=== PATIENT | male | born 1975 | race American Indian/Alaskan Native ===

== ENCOUNTER 2016-08-23 18:49 | Inpatient (IN) | payer MEDICARE ==
[2016-08-23 20:30] LABS: Bilirubin,Urine NEG (Negative); Blood,Urine NEG (Negative); Ketones,Urine 20 mg/dL (Negative); Leukocyte Esterase,Urine NEG (Negative); Nitrite,Urine NEG (Negative); Protein,Urine <15 mg/dL mg/dL (Negative); Urobilinogen,Urine < 2.0 mg/dL (<2.0); WBC,Urine < 1.0 /HPF (0.0-6.0)
[2016-08-23 20:43] LABS: Hematocrit 37.5 % (35.5-45.6); Hemoglobin 12.1 gm/dl (11.8-15.2); Mean Corpuscular HGB Conc 32 % (32-34); Mean Corpuscular Hemoglobin 29 pg (28-32); Mean Corpuscular Volume 89 fl (84-94); Platelet Count 280 K/mm3 (140-440); Red Blood Count 4.24 M/mm3 (3.65-5.03); Red Cell Distribution Width 12.1 % (13.2-15.2)
[2016-08-23 20:44] LABS: White Blood Count 28.2 K/mm3 (4.5-11.0)
[2016-08-23 21:07] LABS: Anion Gap 18 mmol/L; BUN/Creatinine Ratio 21.42; Blood Urea Nitrogen 15 mg/dL (9-20); Calcium 8.7 mg/dL (8.4-10.2); Carbon Dioxide 25 mmol/L (22-30); Chloride 88.1 mmol/L (98-107); Glucose 484 mg/dL (75-100); Potassium 4.4 mmol/L (3.6-5.0); Sodium 127 mmol/L (137-145)
[2016-08-23] MEDS ORDERED: TYLENOL ONE (21:42)
[2016-08-23 21:43] LABS: Basophils % (Manual) 0 % (0.0-1.8); Blastocytes % (Manual) 0 %; Eosinophils % (Manual) 0 % (0.0-4.3); Total Cells Counted Percent 6.5
[2016-08-23] MEDS ORDERED: TYLENOL PO ONE (21:44)
[2016-08-23 21:45] LABS: Diff Status Complete; Stomatocytes 1+
[2016-08-24] MEDS ORDERED: TYLENOL ONE (01:44)
[2016-08-24] MEDS ORDERED: NACL 0.9% 1000 ML 1,000 ML IV ONE ×2 (03:01→07:41)
[2016-08-24] MEDS ORDERED: ZOSYN/NS 4.5GM/100ML 4.5 GM/100 ML VIAL IV ONE ×2 (03:09→04:44)
[2016-08-24] MEDS ORDERED: DILAUDID IV ONE (03:09)
[2016-08-24] MEDS ORDERED: VANCOMYCIN/NS 1 GM/250 ML 1 GM/250 ML BAG IV ONE ×2 (03:09→04:40)
[2016-08-24] MEDS ORDERED: ZOFRAN IV ONE (03:09)
[2016-08-24] MEDS ORDERED: NACL 0.9% 500 ML IR ONE (03:12)
[2016-08-24] MEDS ORDERED: XYLOCAINE 1%/ EPI 1:100,000 INFILTRATI ONE ×2 (03:13→07:56)
--- NOTE | 2016-08-24 03:30 | Emergency Department Report ---
HPI - General Chief Complaint: Skin/Abscess/Foreign Body Time Seen by Provider: 08/24/16 02:57 - HPI HPI: Room 1 The patient is a 41-year-old male presenting with a chief complaint of buttocks pain. The patient states he awakened Tuesday morning (3 days ago) and felt a bump above his gluteal cleft. The patient states he squeezed the bump and it began hurting. Patient states gradually over the next few days the area became indurated and began to hurt more. The patient states he noticed a yellow discharge from the area 1.. Patient denies any history of fevers at home. The patient gives his pain a score of 10/10 currently Location: Above gluteal cleft Duration: Days Quality: Pain Severity: 10/10 Modifying factors: [see above] Context: [see above] Mode of transportation: [not driving] ED Past Medical Hx - Past Medical History Previous Medical History?: Yes Hx Diabetes: Yes (noncompliant) - Surgical History Past Surgical History?: Yes Additional Surgical History: Implanted spinal cord stimulator - Family History Family history: no significant - Social History Smoking Status: Never Smoker - Medications Home Medications: Home Medications Medication Instructions Recorded Confirmed Last Taken Type Unobtainable 08/23/16 08/23/16 Unknown History ED Review of Systems ROS: Stated complaint: SPIDER BITE/HOT AND COLD CHILLS Other details as noted in HPI Comment: All other systems reviewed and negative Constitutional: denies: chills, fever Eyes: denies: eye pain, eye discharge, vision change ENT: denies: ear pain, throat pain Respiratory: denies: cough, shortness of breath, wheezing Cardiovascular: denies: chest pain, palpitations Endocrine: no symptoms reported Gastrointestinal: denies: abdominal pain, nausea, diarrhea Genitourinary: denies: urgency, dysuria Musculoskeletal: arthralgia Skin: lesions Neurological: denies: headache, weakness, paresthesias Psychiatric: denies: anxiety, depression Hematological/Lymphatic: denies: easy bleeding, easy bruising Physical Exam - Physical Exam Vital Signs: Vital Signs 08/23/16 08/23/16 08/24/16 19:07 21:46 00:45 Temperature 100.1 F H 100.2 F H Pulse Rate 129 H 120 H Respiratory 20 18 18 Rate Blood Pressure 183/95 Blood Pressure 145/90 [Right] O2 Sat by Pulse 98 99 Oximetry 08/24/16 08/24/16 08/24/16 00:52 01:00 01:03 Temperature 101.5 F H Pulse Rate 118 H Respiratory 12 Rate Blood Pressure 164/104 Blood Pressure 174/95 [Right] O2 Sat by Pulse 98 97 98 Oximetry 08/24/16 08/24/16 08/24/16 01:10 01:13 01:20 Temperature Pulse Rate Respiratory 14 Rate Blood Pressure 164/104 134/87 Blood Pressure [Right] O2 Sat by Pulse 94 98 96 Oximetry 08/24/16 08/24/16 08/24/16 01:36 01:40 01:50 Temperature Pulse Rate 122 H 112 H Respiratory 24 25 H Rate Blood Pressure 134/87 125/89 136/88 Blood Pressure [Right] O2 Sat by Pulse 97 97 95 Oximetry 08/24/16 08/24/16 08/24/16 02:00 02:03 02:10 Temperature 99.5 F Pulse Rate 108 H 111 H 107 H Respiratory 15 21 Rate Blood Pressure 127/83 136/88 Blood Pressure [Right] O2 Sat by Pulse 97 98 Oximetry 08/24/16 08/24/16 08/24/16 02:20 02:30 02:46 Temperature Pulse Rate 107 H 114 H Respiratory 24 18 Rate Blood Pressure 150/85 157/98 157/98 Blood Pressure [Right] O2 Sat by Pulse 96 96 97 Oximetry Physical Exam: GENERAL: The patient is well-developed well-nourished male lying on stretcher appearing to be in mild discomfort HEENT: Normocephalic. Atraumatic. Extraocular motions are intact. Patient has moist mucous membranes. NECK: Supple. Trachea midline CHEST/LUNGS: There is no respiratory distress noted. HEART/CARDIOVASCULAR: Regular. There is tachycardia. ABDOMEN: There is no abdominal distention. SKIN: There is an approximately 12 cm diameter irregularly shaped region of erythema and induration above the gluteal cleft. There is a central head but no active discharge NEURO: The patient is awake, alert, and oriented. The patient is cooperative. The patient has normal speech MUSCULOSKELETAL: There is no evidence of acute injury. ED Course Vital Signs 08/23/16 08/23/16 08/24/16 19:07 21:46 00:45 Temperature 100.1 F H 100.2 F H Pulse Rate 129 H 120 H Respiratory 20 18 18 Rate Blood Pressure 183/95 Blood Pressure 145/90 [Right] O2 Sat by Pulse 98 99 Oximetry 08/24/16 08/24/16 08/24/16 00:52 01:00 01:03 Temperature 101.5 F H Pulse Rate 118 H Respiratory 12 Rate Blood Pressure 164/104 Blood Pressure 174/95 [Right] O2 Sat by Pulse 98 97 98 Oximetry 08/24/16 08/24/16 08/24/16 01:10 01:13 01:20 Temperature Pulse Rate Respiratory 14 Rate Blood Pressure 164/104 134/87 Blood Pressure [Right] O2 Sat by Pulse 94 98 96 Oximetry 08/24/16 08/24/16 08/24/16 01:36 01:40 01:50 Temperature Pulse Rate 122 H 112 H Respiratory 24 25 H Rate Blood Pressure 134/87 125/89 136/88 Blood Pressure [Right] O2 Sat by Pulse 97 97 95 Oximetry 08/24/16 08/24/16 08/24/16 02:00 02:03 02:10 Temperature 99.5 F Pulse Rate 108 H 111 H 107 H Respiratory 15 21 Rate Blood Pressure 127/83 136/88 Blood Pressure [Right] O2 Sat by Pulse 97 98 Oximetry 08/24/16 08/24/16 08/24/16 02:20 02:30 02:46 Temperature Pulse Rate 107 H 114 H Respiratory 24 18 Rate Blood Pressure 150/85 157/98 157/98 Blood Pressure [Right] O2 Sat by Pulse 96 96 97 Oximetry - I & D Upper Buttocks Type of Procedure: Simple Site: upper buttocks Blade Size: 11 I & D Procedure: betadine prep, sterile dressing applied, gauze wick placed Progress: Site was anesthetized with 15 mL's of lidocaine 1% with epi. Approximately 10 mL's purulent discharge expressed. Wound culture was obtained and sent for evaluation. Wound was copiously irrigated with normal saline. He Patient tolerated well ED Medical Decision Making - Lab Data Result diagrams: 08/23/16 20:28 08/23/16 20:28 Laboratory Tests 08/23/16 08/23/16 08/23/16 20:05 20:28 20:28 WBC 28.2 H RBC 4.24 Hgb 12.1 Hct 37.5 MCV 89 MCH 29 MCHC 32 RDW 12.1 L Plt Count 280 Add Manual Diff Complete Total Counted 200 Seg Neuts % (Manual) 74.0 H Band Neutrophils % 13.5 Lymphocytes % (Manual) 6.0 L Reactive Lymphs % (Man) 0 Monocytes % (Manual) 6.5 Eosinophils % (Manual) 0 Basophils % (Manual) 0 Metamyelocytes % 0 Myelocytes % 0 Promyelocytes % 0 Blast Cells % 0 Nucleated RBC % Not Reportable Seg Neutrophils # Man 20.9 H Band Neutrophils # 3.8 Lymphocytes # (Manual) 1.7 Abs React Lymphs (Man) 0.0 Monocytes # (Manual) 1.8 H Eosinophils # (Manual) 0.0 Basophils # (Manual) 0.0 Metamyelocytes # 0.0 Myelocytes # 0.0 Promyelocytes # 0.0 Blast Cells # 0.0 WBC Morphology Not Reportable Hypersegmented Neuts Not Reportable Hyposegmented Neuts Not Reportable Hypogranular Neuts Not Reportable Smudge Cells Not Reportable Toxic Granulation Not Reportable Toxic Vacuolation Not Reportable Dohle Bodies Not Reportable Pelger-Huet Anomaly Not Reportable Greyson Rods Not Reportable Platelet Estimate Appears normal Clumped Platelets Not Reportable Plt Clumps, EDTA Not Reportable Large Platelets Not Reportable Giant Platelets Not Reportable Platelet Satelliting Not Reportable Plt Morphology Comment Not Reportable RBC Morphology Not Reportable Dimorphic RBCs Not Reportable Polychromasia Not Reportable Hypochromasia Not Reportable Poikilocytosis Not Reportable Anisocytosis Not Reportable Microcytosis Not Reportable Macrocytosis Not Reportable Spherocytes Not Reportable Pappenheimer Bodies Not Reportable Sickle Cells Not Reportable Target Cells Not Reportable Tear Drop Cells Not Reportable Ovalocytes Not Reportable Stomatocytes 1+ Helmet Cells Not Reportable [place] Bodies Not Reportable [place] Rings Not Reportable Esha Cells Not Reportable Bite Cells Not Reportable Crenated Cell Not Reportable Elliptocytes Not Reportable Acanthocytes (Spur) Not Reportable Rouleaux Not Reportable Hemoglobin C Crystals Not Reportable Schistocytes Not Reportable Malaria parasites Not Reportable Elvis Bodies Not Reportable Hem Pathologist Commnt No Sodium 127 L Potassium 4.4 Chloride 88.1 L Carbon Dioxide 25 Anion Gap 18 BUN 15 Creatinine 0.7 L Estimated GFR > 60 BUN/Creatinine Ratio 21.42 Glucose 484 H POC Glucose Calcium 8.7 Urine Color Yellow Urine Turbidity Clear Urine pH 5.0 Ur Specific Longs 1.037 H Urine Protein <15 mg/dl Urine Glucose (UA) >=500 Urine Ketones 20 Urine Blood Neg Urine Nitrite Neg Urine Bilirubin Neg Urine Urobilinogen < 2.0 Ur Leukocyte Esterase Neg Urine WBC (Auto) < 1.0 Urine RBC (Auto) 2.0 08/24/16 02:48 WBC RBC Hgb Hct MCV MCH MCHC RDW Plt Count Add Manual Diff Total Counted Seg Neuts % (Manual) Band Neutrophils % Lymphocytes % (Manual) Reactive Lymphs % (Man) Monocytes % (Manual) Eosinophils % (Manual) Basophils % (Manual) Metamyelocytes % Myelocytes % Promyelocytes % Blast Cells % Nucleated RBC % Seg Neutrophils # Man Band Neutrophils # Lymphocytes # (Manual) Abs React Lymphs (Man) Monocytes # (Manual) Eosinophils # (Manual) Basophils # (Manual) Metamyelocytes # Myelocytes # Promyelocytes # Blast Cells # WBC Morphology Hypersegmented Neuts Hyposegmented Neuts Hypogranular Neuts Smudge Cells Toxic Granulation Toxic Vacuolation Dohle Bodies Pelger-Huet Anomaly Greyson Rods Platelet Estimate Clumped Platelets Plt Clumps, EDTA Large Platelets Giant Platelets Platelet Satelliting Plt Morphology Comment RBC Morphology Dimorphic RBCs Polychromasia Hypochromasia Poikilocytosis Anisocytosis Microcytosis Macrocytosis Spherocytes Pappenheimer Bodies Sickle Cells Target Cells Tear Drop Cells Ovalocytes Stomatocytes Helmet Cells [place] Bodies [place] Rings Esha Cells Bite Cells Crenated Cell Elliptocytes Acanthocytes (Spur) Rouleaux Hemoglobin C Crystals Schistocytes Malaria parasites Elvis Bodies Hem Pathologist Commnt Sodium Potassium Chloride Carbon Dioxide Anion Gap BUN Creatinine Estimated GFR BUN/Creatinine Ratio Glucose POC Glucose 435 H Calcium Urine Color Urine Turbidity Urine pH Ur Specific Longs Urine Protein Urine Glucose (UA) Urine Ketones Urine Blood Urine Nitrite Urine Bilirubin Urine Urobilinogen Ur Leukocyte Esterase Urine WBC (Auto) Urine RBC (Auto) - Differential Diagnosis pilonidal cyst/abscess, gluteal abscess Critical care attestation.: If time is entered above; I have spent that time in minutes in the direct care of this critically ill patient, excluding procedure time. ED Disposition Clinical Impression: Cellulitis, Leukocytosis, Bandemia, Abscess Disposition: OP ADMITTED IP TO THIS HOSP Is pt being admited?: Yes Does the pt Need Aspirin: Yes Condition: Serious Referrals: PRIMARY CARE, [Primary Care Provider] - 3-5 Days Time of Disposition: 04:20 (hospitalist notified)
--- NOTE | 2016-08-24 04:39 | Admit Criteria Form ---
Admission Criteria Documentation: CELLULITIS Clinical Indications for Admission to Inpatient Care (Place 'X' for any and all applicable criteria): Admission is indicated for ANY ONE of the following(1)(2)(3)(4)(5): [ ]I. Limb-threatening infection [ ]II. High-risk comorbid condition as indicated by ANY ONE of the following: [ ]a) Uncontrolled diabetes (eg, HbA1c greater than 10% (0.1)) [ ]b) Cirrhosis [ ]c) Neutropenia [ ]d) Asplenia [ ]e) Immunosuppression [ ]f) Symptomatic heart failure [ ]III. Failure of outpatient therapy as indicated by ALL of the following: [ ]a) Progression or no improvement after adequate trial (minimum of 48 hours, with longer period for stable lower extremity infection) [ ]b) Adequate antibiotic regimen as indicated by use of ANY ONE of the following: [ ]i) First-generation cephalosporin (e.g., cephalexin) [ ]ii) Antistaphylococcal penicillin (e.g., dicloxacillin) [ ]iii) Penicillin-allergic patient regimen (clindamycin, extended-spectrum fluoroquinolone, or doxycycline) [ ]iv) Resistant organism (eg, methicillin-resistant Staphylococcus aureus) regimen (6) [ ]c) Outpatient intravenous therapy regimen is not appropriate due to ANY ONE of the following. (7)(8)(9)(10): [ ]i) It was tried and was not successful (eg, progression of infection). [ ]ii) It is not available or cannot be arranged in a clinically appropriate time frame (e.g., the next day). [ ]iii) Clinical presentation (eg, acuity of infection, rapidity of progression, confirmed or suspected bacteremia) is judged to require ALL of the following: [ ]1) Immediate initiation of intravenous therapy ( eg, cannot wait for next day) [ ]2) Intensity of patient monitoring and observation (eg, vital sign measurement, checks for infection progression) that cannot be provided at other than inpatient level of care [ ]IV. Mental status changes [ ]V. Bacteremia [ ]. Hemodynamic instability [ ]VII. Suspected necrotizing soft tissue infection (e.g., gas in tissue)(11)( 12) [ ]VIII. Orbital infection (13)(14) [X ]IX. Associated surgical procedure (e.g., abscess drainage, debridement) not amenable to outpatient, emergency department, or observation care [ ]X. Cutaneous gangrene [ ]XI. High fever (temperature greater than 39.5 degrees C (103.1 degrees F) (oral)) not responsive to outpatient, emergency department, or observation care therapy [ X]XIII. Inpatient admission required rather than observation care (Also use Cellulitis: Observation Care as appropriate) because of ANY ONE of the following : [ ]a) Periorbital or perineal infection that is severe or worsening [ ]b) Severe pain requiring acute inpatient management [ ]c) IV fluid to replace significant ongoing (e.g., for over 24 hours) losses (greater than 3L/m2 per day) [ ]d) Compartment syndrome monitoring (17) [ ]e) Strict or protective (eg, laminar flow) isolation [ ]f) Urgent debridement or skin grafting [ ]g) Bone or joint debridement [ ]h) Immediate inpatient surgery [ X]i) Other condition, treatment or monitoring requiring inpatient admission Extended stay beyond goal length of stay may be needed for (1)(18): [ ]a) Necrotizing soft tissue infection or fasciitis [ ]b) Gram-negative infection [ ]c) Methicillin-resistant Staphylococcal aureus (MRSA) infection [ ]d) Peripheral venous insufficiency with cellulitis [ ]e) Extensive edema [ ]f) Sepsis or continued Hemodynamic instability [ ]g) Continued high fever or mental status change [ ]h) Bacteremia [ ]i) Active serious comorbid conditions ( eg, heart failure, renal insufficiency) The original [facility] content created by [facility] has been revised. The portions of the content which have been revised are identified through the use of italic text or in bold, and [facility] has neither reviewed nor approved the modified material. All other unmodified content is copyright [facility] Please see references footnoted in the original [facility] [employer] edition 2016 Admission Criteria Met: Yes
[2016-08-24] MEDS ORDERED: ZOSYN IV ONE (04:40)
[2016-08-24] MEDS ORDERED: NS IV ONE (04:40)
[2016-08-24] MEDS ORDERED: D50W (25GM) IV PRN (07:45)
[2016-08-24] MEDS ORDERED: NACL 0.9% IR ONE (07:56)
[2016-08-24] MEDS ORDERED: VANCOMYCIN PHARMACY TO DOSE IV SCH (08:00)
[2016-08-24] MEDS: DILAUDID IV PRN ×3 (09:17→22:31)
[2016-08-24] MEDS ORDERED: DULCOLAX PR PRN (09:29)
--- NOTE | 2016-08-24 09:48 | Cat Scan Report ---
CT scan of abdomen and pelvis without IV contrast: History: Gluteal abscess. Findings: Normal lung bases. No pleural pericardial effusion. Normal liver spleen pancreas and gallbladder. Normal adrenals and kidney parenchyma are normal bladder. No free intraperitoneal fluid. No evidence of adenopathy. Normal. Gaseous colon with moderate volume stool in colon. No evidence of appendicitis or diverticulitis. There is multiple small pockets of air with adjacent subcutaneous stranding in the left gluteal region to the left of the midline. Measures approximately 4 x 1 cm and extends to adjacent skin. Impression: Small abscess subcutaneous tissue left of the midline left gluteal region at the level of iliac crest.
[2016-08-24] MEDS ORDERED: VANCOMYCIN/NS 1 GM/250 ML 250 ML IV SCH (10:00)
[2016-08-24] MEDS ORDERED: MILK OF MAGNESIA PO PRN (11:00)
[2016-08-24 11:40] LABS: INR 1.34 (0.87-1.13)
[2016-08-24] MEDS: NOVOLOG SUB-Q SCH ×3 (12:05→23:36)
[2016-08-24] MEDS: ZOSYN/NS 4.5GM/100ML 4.5 GM/100 ML VIAL IV SCH (12:45)
--- NOTE | 2016-08-24 14:54 | Consultation ---
History of Present Illness Consult date: 08/24/16 Reason for consult: other (buttock abcess,draining) Chief complaint: my buttock hurts - History of present illness History of present illness: 41 year old male with hx of spinal stimulator for foot injury/nerve damage with 48-72 hour hx of increasing pain and redness in right buttock which has been I and D'ed in the ER and cultures are pending. ( iodoform packing in place.) Past History Past Medical History: other (hx of foot injury, spinal stimulator) Past Surgical History: Other (spinal stimulator) Medications and Allergies Allergies Allergy/AdvReac Type Severity Reaction Status Date / Time No Known Allergies Allergy Unverified 08/23/16 19:05 Home Medications Medication Instructions Recorded Confirmed Last Taken Type Unobtainable 08/23/16 08/23/16 Unknown History Active Meds: Active Medications Acetaminophen (Tylenol) 650 mg PO Q4H PRN PRN Reason: Pain MILD(1-3)/Fever >100.5/RAO Bisacodyl (Dulcolax) 10 mg PA QDAY PRN PRN Reason: Constipation unrelieved by MOM Dextrose (D50w (25gm)) 50 ml IV PRN PRN PRN Reason: Hypoglycemia Hydromorphone HCl (Dilaudid) 1 mg IV Q3H PRN PRN Reason: Pain , Severe (7-10) Last Admin: 08/24/16 12:46 Dose: 1 mg Sodium Chloride (Nacl 0.9% 1000 Ml) 1,000 mls @ 125 mls/hr IV DIRECT NGOC Piperacillin Sod/Tazobactam Sod (Zosyn/Ns 4.5gm/100ml) 4.5 gm in 100 mls @ 200 mls/hr IV Q6HR NGOC PRN Reason: Protocol Last Admin: 08/24/16 12:45 Dose: 200 mls/hr Vancomycin HCl 1,500 mg/ (Sodium Chloride) 500 mls @ 333.333 mls/hr IV Q12H NGCO Insulin Aspart (Novolog) 0 units SUB-Q ACHS NGOC PRN Reason: Protocol Last Admin: 08/24/16 12:05 Dose: 4 units Insulin Detemir (Levemir) 12 units SUB-Q QHS NGOC Magnesium Hydroxide (Milk Of Magnesia) 30 ml PO Q4H PRN PRN Reason: Constipation Ondansetron HCl (Zofran) 4 mg IV Q8H PRN PRN Reason: N/V unrelieved by Steve Vancomycin HCl (Vancomycin Pharmacy To Dose) 1 each IV PKCONSULT NGOC PRN Reason: Protocol Review of Systems - Muskuloskeletal other (packing in abcess in place.) Exam Vital Signs Temp Pulse Resp BP Pulse Ox 100.1 F H 129 H 20 183/95 98 08/23/16 19:07 08/23/16 19:07 08/23/16 19:07 08/23/16 19:07 08/23/16 19:07 - General physical appearance Positive: no distress - Eyes Positive: PERRL, normal occular movement - ENT Positive: normal pinna, normal nares, normal mucosa, no hearing loss, no congestion - Neck Positive: no masses, no bruits, trachea midline, no venous distension - Respiratory Positive: normal expansion, normal respiratory effort, clear to auscultation - Cardiovascular Rhythm: regular Heart Sounds: Present: S1 & S2. Absent: rub, click - Extremities Extremities: no ischemia, pulses symmetrical, No edema Peripheral Pulses: within normal limits - Breasts Breasts: normal - Abdomen Abdomen: Present: soft, bowel sounds normal, other (buttock with some cellulitis and packed). Absent: tender, distended - Genitourinary Male Genitourinary: normal - Neurologic Neurologic: alert and oriented to time, place and person, motor strength and sensation are grossly intact - Psychiatric Psychiatric: appropriate mood/affect, intact judgment & insight Results - Labs 08/23/16 20:28 08/23/16 20:28 Abnormal lab results 08/24/16 08/24/16 08/24/16 Range/Units 09:02 11:07 11:52 PT 16.5 H (12.2-14.9) Sec. INR 1.34 H (0.87-1.13) POC Glucose 367 H 313 H (70-105) Assessment and Plan Buttock abcess, s/p I and D in ER, agree with IV antibiotics, will check cultures, pain control, abcess/cellulitis is allready drained. Will follow.
[2016-08-24] MEDS: NACL 0.9% 1000 ML 1,000 ML IV SCH (16:00)
[2016-08-24] MEDS: VANCOMYCIN VIAL 1,500 MG in NACL 0.9% 500 ML 500 ML IV SCH (16:33)
--- NOTE | 2016-08-24 17:59 | History and Physical Report ---
History of Present Illness Date of examination: 08/24/16 Date of admission: 08/24/16 04:17 Chief complaint: Gluteal pain History of present illness: Patient is a 41-year-old male presented to the ER with complaint of buttocks pain. He s has a known history of diabetes mellitus, diabetic neuropathy, chronic pain syndrome, also a crush injury to the right lower extremity for which he has a nerve stimulator in place. He reports that the pain started about 3 days ago he tried to squeeze the gluteal area and he began created significant pain. He is in so much pain is unable to provide me much information. He denies any fever or chills nausea vomiting diarrhea. He is what his blood sugar control isthat he shuttles between [place] and [place]. He resuspended out of 10 in intensity with no radiation. ROS Constitutional: No fever, fatigue or weight loss. Skin: No rash. Eyes: No recent vision problems or eye pain. ENT: No congestion, ear pain, or sore throat. Endocrine: No thyroid problems. Cardiovascular: No chest pain. Respiratory: No cough, shortness of breath, congestion, or wheezing. Gastrointestinal: No abdominal pain, nausea, vomiting, or diarrhea. Genitourinary: No dysuria. Musculoskeletal: No joint swelling. Reports gluteal pain Neurologic: No seizures. Hematologic: No unusual bruising or bleeding. Psychiatric: No psychiatric problems, hallucinations or depression. All other systems reviewed and otherwise negative. Past History Past Medical History: diabetes, other (hx of foot injury, spinal stimulator) Past Surgical History: Other (spinal stimulator) Social history: full code. denies: smoking, alcohol abuse, IV drug use Family history: no significant family history Medications and Allergies Allergies Allergy/AdvReac Type Severity Reaction Status Date / Time No Known Allergies Allergy Unverified 08/23/16 19:05 Home Medications Medication Instructions Recorded Confirmed Last Taken Type Unobtainable 08/23/16 08/23/16 Unknown History Active Meds: Active Medications Acetaminophen (Tylenol) 650 mg PO Q4H PRN PRN Reason: Pain MILD(1-3)/Fever >100.5/RAO Bisacodyl (Dulcolax) 10 mg MO QDAY PRN PRN Reason: Constipation unrelieved by MOM Dextrose (D50w (25gm)) 50 ml IV PRN PRN PRN Reason: Hypoglycemia Hydromorphone HCl (Dilaudid) 1 mg IV Q3H PRN PRN Reason: Pain , Severe (7-10) Last Admin: 08/24/16 12:46 Dose: 1 mg Sodium Chloride (Nacl 0.9% 1000 Ml) 1,000 mls @ 125 mls/hr IV DIRECT NGOC Last Admin: 08/24/16 16:00 Dose: 125 mls/hr Piperacillin Sod/Tazobactam Sod (Zosyn/Ns 4.5gm/100ml) 4.5 gm in 100 mls @ 200 mls/hr IV Q6HR NGOC PRN Reason: Protocol Last Admin: 08/24/16 12:45 Dose: 200 mls/hr Vancomycin HCl 1,500 mg/ (Sodium Chloride) 500 mls @ 333.333 mls/hr IV Q12H [facility] Last Admin: 08/24/16 16:33 Dose: 333.333 mls/hr Insulin Aspart (Novolog) 0 units SUB-Q ACHS NGOC PRN Reason: Protocol Last Admin: 08/24/16 12:05 Dose: 4 units Insulin Detemir (Levemir) 12 units SUB-Q QHS NGOC Magnesium Hydroxide (Milk Of Magnesia) 30 ml PO Q4H PRN PRN Reason: Constipation Ondansetron HCl (Zofran) 4 mg IV Q8H PRN PRN Reason: N/V unrelieved by Steve Vancomycin HCl (Vancomycin Pharmacy To Dose) 1 each IV PKCONSULT NGOC PRN Reason: Protocol Exam - Physical Exam Narrative exam: VITAL SIGNS: Reviewed. GENERAL: The patient appeared well nourished and normally developed. Vital signs as documented. HEAD: No signs of head trauma. EYES: Pupils are equal. Extraocular motions intact. EARS: Hearing grossly intact. MOUTH: Oropharynx is normal. NECK: No adenopathy, no JVD. CHEST: Chest with clear breath sounds bilaterally. No wheezes, rales, or rhonchi. CARDIAC: Regular rate and rhythm. S1 and S2, without murmurs, gallops, or rubs. VASCULAR: No Edema. Peripheral pulses normal and equal in all extremities. ABDOMEN: Soft, without detectable tenderness. No sign of distention. No rebound or guarding, and no masses palpated. Bowel Sounds normal. MUSCULOSKELETAL: Gluteal area tender to palpation. Otherwise Good range of motion of all major joints. Extremities without clubbing, cyanosis or edema. NEUROLOGIC EXAM: Alert and oriented x 3. No focal sensory or strength deficits. Speech normal. Follows commands. PSYCHIATRIC: Mood normal. SKIN: No rash or lesions. - Constitutional Vitals: Temp Pulse Resp BP Pulse Ox 100.4 F H 100 H 24 125/74 97 08/24/16 12:11 08/24/16 14:00 08/24/16 14:00 08/24/16 14:00 08/24/16 14:00 Results - Labs CBC & Chem 7: 08/23/16 20:28 08/23/16 20:28 Labs: Laboratory Last Values WBC 28.2 K/mm3 (4.5-11.0) H 08/23/16 20: RBC 4.24 M/mm3 (3.65-5.03) 08/23/16 20:28 Hgb 12.1 gm/dl (11.8-15.2) 08/23/16 20:28 Hct 37.5 % (35.5-45.6) 08/23/16 20:28 MCV 89 fl (84-94) 08/23/16 20:28 MCH 29 pg (28-32) 08/23/16 20:28 MCHC 32 % (32-34) 08/23/16 20:28 RDW 12.1 % (13.2-15.2) L 08/23/16 20:28 Plt Count 280 K/mm3 (140-440) 08/23/16 20:28 Add Manual Diff Complete 08/23/16 20:28 Total Counted 200 08/23/16 20:28 Seg Neuts % (Manual) 74.0 % (40.0-70.0) H 08/23/16 20:28 Band Neutrophils % 13.5 % 08/23/16 20:28 Lymphocytes % (Manual) 6.0 % (13.4-35.0) L 08/23/16 20:28 Reactive Lymphs % (Man) 0 % 08/23/16 20:28 Monocytes % (Manual) 6.5 % (0.0-7.3) 08/23/16 20:28 Eosinophils % (Manual) 0 % (0.0-4.3) 08/23/16 20:28 Basophils % (Manual) 0 % (0.0-1.8) 08/23/16 20:28 Metamyelocytes % 0 % 08/23/16 20:28 Myelocytes % 0 % 08/23/16 20:28 Promyelocytes % 0 % 08/23/16 20:28 Blast Cells % 0 % 08/23/16 20:28 Nucleated RBC % Not Reportable 08/23/16 20:28 Seg Neutrophils # Man 20.9 K/mm3 (1.8-7.7) H 08/23/16 20:28 Band Neutrophils # 3.8 K/mm3 08/23/16 20:28 Lymphocytes # (Manual) 1.7 K/mm3 (1.2-5.4) 08/23/16 20:28 Abs React Lymphs (Man) 0.0 K/mm3 08/23/16 20:28 Monocytes # (Manual) 1.8 K/mm3 (0.0-0.8) H 08/23/16 20:28 Eosinophils # (Manual) 0.0 K/mm3 (0.0-0.4) 08/23/16 20:28 Basophils # (Manual) 0.0 K/mm3 (0.0-0.1) 08/23/16 20:28 Metamyelocytes # 0.0 K/mm3 08/23/16 20:28 Myelocytes # 0.0 K/mm3 08/23/16 20:28 Promyelocytes # 0.0 K/mm3 08/23/16 20:28 Blast Cells # 0.0 K/mm3 08/23/16 20:28 WBC Morphology Not Reportable 08/23/16 20:28 Hypersegmented Neuts Not Reportable 08/23/16 20:28 Hyposegmented Neuts Not Reportable 08/23/16 20:28 Hypogranular Neuts Not Reportable 08/23/16 20:28 Smudge Cells Not Reportable 08/23/16 20:28 Toxic Granulation Not Reportable 08/23/16 20:28 Toxic Vacuolation Not Reportable 08/23/16 20:28 Dohle Bodies Not Reportable 08/23/16 20:28 Pelger-Huet Anomaly Not Reportable 08/23/16 20:28 Greyson Rods Not Reportable 08/23/16 20:28 Platelet Estimate Appears normal 08/23/16 20:28 Clumped Platelets Not Reportable 08/23/16 20:28 Plt Clumps, EDTA Not Reportable 08/23/16 20:28 Large Platelets Not Reportable 08/23/16 20:28 Giant Platelets Not Reportable 08/23/16 20:28 Platelet Satelliting Not Reportable 08/23/16 20:28 Plt Morphology Comment Not Reportable 08/23/16 20:28 RBC Morphology Not Reportable 08/23/16 20:28 Dimorphic RBCs Not Reportable 08/23/16 20:28 Polychromasia Not Reportable 08/23/16 20:28 Hypochromasia Not Reportable 08/23/16 20:28 Poikilocytosis Not Reportable 08/23/16 20:28 Anisocytosis Not Reportable 08/23/16 20:28 Microcytosis Not Reportable 08/23/16 20:28 Macrocytosis Not Reportable 08/23/16 20:28 Spherocytes Not Reportable 08/23/16 20:28 Pappenheimer Bodies Not Reportable 08/23/16 20:28 Sickle Cells Not Reportable 08/23/16 20:28 Target Cells Not Reportable 08/23/16 20:28 Tear Drop Cells Not Reportable 08/23/16 20:28 Ovalocytes Not Reportable 08/23/16 20:28 Stomatocytes 1+ 08/23/16 20:28 Helmet Cells Not Reportable 08/23/16 20:28 [place] Bodies Not Reportable 08/23/16 20:28 [place] Rings Not Reportable 08/23/16 20:28 [place] Cells Not Reportable 08/23/16 20:28 Bite Cells Not Reportable 08/23/16 20:28 Crenated Cell Not Reportable 08/23/16 20:28 Elliptocytes Not Reportable 08/23/16 20:28 Acanthocytes (Spur) Not Reportable 08/23/16 20:28 Rouleaux Not Reportable 08/23/16 20:28 Hemoglobin C Crystals Not Reportable 08/23/16 20:28 Schistocytes Not Reportable 08/23/16 20:28 Malaria parasites Not Reportable 08/23/16 20:28 Elvis Bodies Not Reportable 08/23/16 20:28 Hem Pathologist Commnt No 08/23/16 20:28 PT 16.5 Sec. (12.2-14.9) H 08/24/16 11:07 INR 1.34 (0.87-1.13) H 08/24/16 11:07 VBG pH 7.347 (7.320-7.420) 08/24/16 04:22 Sodium 127 mmol/L (137-145) L 08/23/16 20:28 Potassium 4.4 mmol/L (3.6-5.0) 08/23/16 20:28 Chloride 88.1 mmol/L (98-107) L 08/23/16 20:28 Carbon Dioxide 25 mmol/L (22-30) 08/23/16 20:28 Anion Gap 18 mmol/L 08/23/16 20:28 BUN 15 mg/dL (9-20) 08/23/16 20:28 Creatinine 0.7 mg/dL (0.8-1.5) L 08/23/16 20:28 Estimated GFR > 60 ml/min 08/23/16 20:28 BUN/Creatinine Ratio 21.42 % 08/23/16 20:28 Glucose 484 mg/dL (75-100) H 08/23/16 20:28 POC Glucose 353 (70-105) H 08/24/16 17:16 Lactic Acid 1.3 mmol/L (0.7-2.0) 08/24/16 11:07 Calcium 8.7 mg/dL (8.4-10.2) 08/23/16 20:28 Urine Color Yellow (Yellow) 08/23/16 20:05 Urine Turbidity Clear (Clear) 08/23/16 20:05 Urine pH 5.0 (5.0-7.0) 08/23/16 20:05 Ur Specific [place] 1.037 (1.003-1.030) H 08/23/16 20:05 Urine Protein <15 mg/dl mg/dL (Negative) 08/23/16 20:05 Urine Glucose (UA) >=500 mg/dL (Negative) 08/23/16 20:05 Urine Ketones 20 mg/dL (Negative) 08/23/16 20:05 Urine Blood Neg (Negative) 08/23/16 20:05 Urine Nitrite Neg (Negative) 08/23/16 20:05 Urine Bilirubin Neg (Negative) 08/23/16 20: Urine Urobilinogen < 2.0 mg/dL (<2.0) 08/23/16 20:05 Ur Leukocyte Esterase Neg (Negative) 08/23/16 20:05 Urine WBC (Auto) < 1.0 /HPF (0.0-6.0) 08/23/16 20:05 Urine RBC (Auto) 2.0 /HPF (0.0-6.0) 08/23/16 20:05 - Imaging and Cardiology CT scan - abdomen: pending CT scan - pelvis: pending Assessment and Plan Assessment and plan: Patient is a 41-year-old male presented to the ER with complaint of buttocks pain. He s has a known history of diabetes mellitus, diabetic neuropathy, chronic pain syndrome, also a crush injury to the right lower extremity for which he has a nerve stimulator in place. He reports that the pain started about 3 days ago he tried to squeeze the gluteal area and he began created significant pain. He is in so much pain is unable to provide me much information. He denies any fever or chills nausea vomiting diarrhea. He is unsure what his blood sugar control is, he informs me that he shuttles between [place] and [place]. He rates pain a 10 out of 10 in intensity with no radiation. * Gluteal abscess * Sepsis secondary to gluteal abscess * Diabetes mellitus-uncontrolled * Leukocytosis secondary to sepsis * Diabetic neuropathy * Chronic pain syndrome Plan * Admit to medical surgical unit * Pain control with IV Dilaudid * Diabetic control with insulin and Accu-Cheks before meals daily at bedtime * Obtain CT of pelvis and abdomen to further delineate extent of abscess * Patient received incision and drainage in the ER, she lost the depth back in place we'll consult surgery for further evaluation * DVT and GI prophylaxis * Monitor hardware to ensure normal tenderness infection to hardware. * Wound care consult Advance Directives: Yes Plan of care discussed with patient/family: Yes
[2016-08-24] MEDS: TYLENOL PO PRN (22:20)
[2016-08-24] MEDS: LEVEMIR SUB-Q SCH (23:36)
[2016-08-25] MEDS: ZOSYN/NS 4.5GM/100ML 4.5 GM/100 ML VIAL IV SCH ×6 (00:46→23:39)
[2016-08-25] MEDS: DILAUDID IV PRN ×5 (03:39→20:58)
[2016-08-25] MEDS: NACL 0.9% 1000 ML 1,000 ML IV SCH ×2 (03:40→18:23)
[2016-08-25] MEDS: VANCOMYCIN VIAL 1,500 MG in NACL 0.9% 500 ML 500 ML IV SCH (03:41)
[2016-08-25] MEDS: NOVOLOG SUB-Q SCH ×4 (07:37→21:25)
[2016-08-25 08:14] LABS: Hematocrit 33.1 % (35.5-45.6); Hemoglobin 10.8 gm/dl (11.8-15.2); Mean Corpuscular HGB Conc 33 % (32-34); Mean Corpuscular Hemoglobin 29 pg (28-32); Mean Corpuscular Volume 88 fl (84-94); Platelet Count 274 K/mm3 (140-440); Red Blood Count 3.75 M/mm3 (3.65-5.03)
[2016-08-25 08:15] LABS: White Blood Count 24.8 K/mm3 (4.5-11.0)
[2016-08-25 08:22] LABS: Anion Gap 17 mmol/L; Blood Urea Nitrogen 9 mg/dL (9-20); Calcium 7.8 mg/dL (8.4-10.2); Carbon Dioxide 24 mmol/L (22-30); Chloride 101.3 mmol/L (98-107); Glucose 215 mg/dL (75-100); Sodium 138 mmol/L (137-145)
[2016-08-25 09:09] LABS: Basophils % (Manual) 0 % (0.0-1.8); Blastocytes % (Manual) 0 %; Eosinophils % (Manual) 0 % (0.0-4.3)
[2016-08-25 09:11] LABS: Anisocytosis 1+; Diff Status Complete; Platelet Estimate Consistent w Auto
--- NOTE | 2016-08-25 09:55 | Progress Note ---
Assessment and Plan Assessment and plan: Patient is a 41-year-old male presented to the ER with complaint of buttocks pain. He s has a known history of diabetes mellitus, diabetic neuropathy, chronic pain syndrome, also a crush injury to the right lower extremity for which he has a nerve stimulator in place. He reports that the pain started about 3 days ago he tried to squeeze the gluteal area and he began created significant pain. He is in so much pain is unable to provide me much information. He denies any fever or chills nausea vomiting diarrhea. He is unsure what his blood sugar control is, he informs me that he shuttles between [place] and [place]. He rates pain a 10 out of 10 in intensity with no radiation. * Gluteal abscess * Sepsis secondary to gluteal abscess-MAXIMUM TEMPERATURE 102.6 for last night * Diabetes mellitus-uncontrolled * Leukocytosis secondary to sepsis * Diabetic neuropathy * Chronic pain syndrome Plan * Continue antibiotics * Pain control with IV Dilaudid * Diabetic control with insulin and Accu-Cheks before meals daily at bedtime * We'll check A1c patient was not taking insulin at home. * Surgical inputs noted. * With cultures no growth continue to monitor * Patient received incision and drainage in the ER, she lost the depth back in place we'll consult surgery for further evaluation * DVT and GI prophylaxis * Monitor hardware to ensure normal tenderness infection to hardware. * Wound care consult History Interval history: Follow-up gluteal abscess Patient seen and examined this morning in no acute distress, reports mild improvement did have fever yesterday. Denies any chest pain, nausea, vomiting, diarrhea Blood pressure controlled No adverse events reported to me by nursing staff Hospitalist Physical - Physical exam Narrative exam: VITAL SIGNS: Reviewed. GENERAL: The patient appeared well nourished and normally developed. Vital signs as documented. HEAD: No signs of head trauma. EYES: Pupils are equal. Extraocular motions intact. EARS: Hearing grossly intact. MOUTH: Oropharynx is normal. NECK: No adenopathy, no JVD. CHEST: Chest with clear breath sounds bilaterally. No wheezes, rales, or rhonchi. CARDIAC: Regular rate and rhythm. S1 and S2, without murmurs, gallops, or rubs. VASCULAR: No Edema. Peripheral pulses normal and equal in all extremities. ABDOMEN: Soft, without detectable tenderness. No sign of distention. No rebound or guarding, and no masses palpated. Bowel Sounds normal. MUSCULOSKELETAL: Gluteal area tender to palpation, drainage in place indurated area still noted.. Otherwise Good range of motion of all major joints. Extremities without clubbing, cyanosis or edema. NEUROLOGIC EXAM: Alert and oriented x 3. No focal sensory or strength deficits. Speech normal. Follows commands. PSYCHIATRIC: Mood normal. SKIN: No rash or lesions. - Constitutional Vitals: Temp Pulse Resp BP Pulse Ox 98.3 F 80 18 138/60 97 08/25/16 08:00 08/25/16 08:00 08/25/16 08:00 08/25/16 08:00 08/25/16 08:00 Results - Labs CBC & Chem 7: 08/25/16 07:47 08/25/16 07:47 Labs: Laboratory Last Values WBC 24.8 K/mm3 (4.5-11.0) H 08/25/16 07:47 RBC 3.75 M/mm3 (3.65-5.03) 08/25/16 07:47 Hgb 10.8 gm/dl (11.8-15.2) L 08/25/16 07:47 Hct 33.1 % (35.5-45.6) L 08/25/16 07:47 MCV 88 fl (84-94) 08/25/16 07:47 MCH 29 pg (28-32) 08/25/16 07:47 MCHC 33 % (32-34) 08/25/16 07:47 RDW 12.0 % (13.2-15.2) L 08/25/16 07:47 Plt Count 274 K/mm3 (140-440) 08/25/16 07:47 Add Manual Diff Complete 08/25/16 07:47 Total Counted 100 08/25/16 07:47 Seg Neuts % (Manual) 75.0 % (40.0-70.0) H 08/25/16 07:47 Band Neutrophils % 0 % 08/25/16 07:47 Lymphocytes % (Manual) 16.0 % (13.4-35.0) 08/25/16 07:47 Reactive Lymphs % (Man) 0 % 08/25/16 07:47 Monocytes % (Manual) 9.0 % (0.0-7.3) H 08/25/16 07:47 Eosinophils % (Manual) 0 % (0.0-4.3) 08/25/16 07:47 Basophils % (Manual) 0 % (0.0-1.8) 08/25/16 07:47 Metamyelocytes % 0 % 08/25/16 07:47 Myelocytes % 0 % 08/25/16 07:47 Promyelocytes % 0 % 08/25/16 07:47 Blast Cells % 0 % 08/25/16 07:47 Nucleated RBC % Not Reportable 08/25/16 07:47 Seg Neutrophils # Man 18.6 K/mm3 (1.8-7.7) H 08/25/16 07:47 Band Neutrophils # 0.0 K/mm3 08/25/16 07:47 Lymphocytes # (Manual) 4.0 K/mm3 (1.2-5.4) 08/25/16 07:47 Abs React Lymphs (Man) 0.0 K/mm3 08/25/16 07:47 Monocytes # (Manual) 2.2 K/mm3 (0.0-0.8) H 08/25/16 07:47 Eosinophils # (Manual) 0.0 K/mm3 (0.0-0.4) 08/25/16 07:47 Basophils # (Manual) 0.0 K/mm3 (0.0-0.1) 08/25/16 07:47 Metamyelocytes # 0.0 K/mm3 08/25/16 07:47 Myelocytes # 0.0 K/mm3 08/25/16 07:47 Promyelocytes # 0.0 K/mm3 08/25/16 07:47 Blast Cells # 0.0 K/mm3 08/25/16 07:47 WBC Morphology Not Reportable 08/25/16 07:47 Hypersegmented Neuts Not Reportable 08/25/16 07:47 Hyposegmented Neuts Not Reportable 08/25/16 07:47 Hypogranular Neuts Not Reportable 08/25/16 07:47 Smudge Cells Not Reportable 08/25/16 07:47 Toxic Granulation Not Reportable 08/25/16 07:47 Toxic Vacuolation Not Reportable 08/25/16 07:47 Dohle Bodies Not Reportable 08/25/16 07:47 Pelger-Huet Anomaly Not Reportable 08/25/16 07:47 Greyson Rods Not Reportable 08/25/16 07:47 Platelet Estimate Consistent w auto 08/25/16 07:47 Clumped Platelets Not Reportable 08/25/16 07:47 Plt Clumps, EDTA Not Reportable 08/25/16 07:47 Large Platelets Not Reportable 08/25/16 07:47 Giant Platelets Not Reportable 08/25/16 07:47 Platelet Satelliting Not Reportable 08/25/16 07:47 Plt Morphology Comment Not Reportable 08/25/16 07:47 RBC Morphology Not Reportable 08/25/16 07:47 Dimorphic RBCs Not Reportable 08/25/16 07:47 Polychromasia Not Reportable 08/25/16 07:47 Hypochromasia Not Reportable 08/25/16 07:47 Poikilocytosis Not Reportable 08/25/16 07:47 Anisocytosis 1+ 08/25/16 07:47 Microcytosis Not Reportable 08/25/16 07:47 Macrocytosis Not Reportable 08/25/16 07:47 Spherocytes Not Reportable 08/25/16 07:47 Pappenheimer Bodies Not Reportable 08/25/16 07:47 Sickle Cells Not Reportable 08/25/16 07:47 Target Cells Not Reportable 08/25/16 07:47 Tear Drop Cells Not Reportable 08/25/16 07:47 Ovalocytes Not Reportable 08/25/16 07:47 Stomatocytes 1+ 08/23/16 20:28 Helmet Cells Not Reportable 08/25/16 07:47 [place] Bodies Not Reportable 08/25/16 07:47 [place] Rings Not Reportable 08/25/16 07:47 [place] Cells Not Reportable 08/25/16 07:47 Bite Cells Not Reportable 08/25/16 07:47 Crenated Cell Not Reportable 08/25/16 07:47 Elliptocytes Not Reportable 08/25/16 07:47 Acanthocytes (Spur) Not Reportable 08/25/16 07:47 Rouleaux Not Reportable 08/25/16 07:47 Hemoglobin C Crystals Not Reportable 08/25/16 07:47 Schistocytes Not Reportable 08/25/16 07:47 Malaria parasites Not Reportable 08/25/16 07:47 Elvis Bodies Not Reportable 08/25/16 07:47 Hem Pathologist Commnt No 08/25/16 07:47 PT 16.5 Sec. (12.2-14.9) H 08/24/16 11:07 INR 1.34 (0.87-1.13) H 08/24/16 11:07 VBG pH 7.347 (7.320-7.420) 08/24/16 04:22 Sodium 138 mmol/L (137-145) D 08/25/16 07:47 Potassium 4.0 mmol/L (3.6-5.0) 08/25/16 07:47 Chloride 101.3 mmol/L (98-107) 08/25/16 07:47 Carbon Dioxide 24 mmol/L (22-30) 08/25/16 07:47 Anion Gap 17 mmol/L 08/25/16 07:47 BUN 9 mg/dL (9-20) 08/25/16 07:47 Creatinine 0.6 mg/dL (0.8-1.5) L 08/25/16 07:47 Estimated GFR > 60 ml/min 08/25/16 07:47 BUN/Creatinine Ratio 15.00 % 08/25/16 07:47 Glucose 215 mg/dL (75-100) H 08/25/16 07:47 POC Glucose 186 (70-105) H 08/25/16 06:40 Lactic Acid 1.3 mmol/L (0.7-2.0) 08/24/16 11:07 Calcium 7.8 mg/dL (8.4-10.2) L 08/25/16 07:47 Urine Color Yellow (Yellow) 08/23/16 20:05 Urine Turbidity Clear (Clear) 08/23/16 20:05 Urine pH 5.0 (5.0-7.0) 08/23/16 20:05 Ur Specific [place] 1.037 (1.003-1.030) H 08/23/16 20:05 Urine Protein <15 mg/dl mg/dL (Negative) 08/23/16 20:05 Urine Glucose (UA) >=500 mg/dL (Negative) 08/23/16 20:05 Urine Ketones 20 mg/dL (Negative) 08/23/16 20:05 Urine Blood Neg (Negative) 08/23/16 20:05 Urine Nitrite Neg (Negative) 08/23/16 20:05 Urine Bilirubin Neg (Negative) 08/23/16 20:05 Urine Urobilinogen < 2.0 mg/dL (<2.0) 08/23/16 20:05 Ur Leukocyte Esterase Neg (Negative) 08/23/16 20:05 Urine WBC (Auto) < 1.0 /HPF (0.0-6.0) 08/23/16 20:05 Urine RBC (Auto) 2.0 /HPF (0.0-6.0) 08/23/16 20:05 Microbiology 08/24/16 04:16 Peripheral/Venous Blood Culture - Preliminary NO GROWTH AFTER 24 HOURS 08/24/16 04:16 Peripheral/Venous Blood Culture - Preliminary NO GROWTH AFTER 24 HOURS 08/24/16 04:13 Buttock Wound Culture - Preliminary
[2016-08-25] MEDS: VANCOMYCIN VIAL 1,250 MG in NACL 0.9% 250ML 250 ML IV SCH ×2 (14:47→21:36)
[2016-08-25] MEDS: TYLENOL PO PRN (19:23)
[2016-08-25] MEDS: ZOFRAN IV PRN (20:58)
[2016-08-25] MEDS: LEVEMIR SUB-Q SCH (20:59)
[2016-08-26] MEDS: DILAUDID IV PRN ×5 (02:39→21:20)
[2016-08-26] MEDS: ZOSYN/NS 4.5GM/100ML 4.5 GM/100 ML VIAL IV SCH ×3 (05:00→18:24)
[2016-08-26] MEDS: VANCOMYCIN VIAL 1,250 MG in NACL 0.9% 250ML 250 ML IV SCH ×3 (05:43→23:16)
[2016-08-26 07:29] LABS: Hemoglobin 10.2 gm/dl (11.8-15.2); Mean Corpuscular HGB Conc 33 % (32-34); Mean Corpuscular Hemoglobin 29 pg (28-32); Mean Corpuscular Volume 87 fl (84-94); Platelet Count 291 K/mm3 (140-440); Red Blood Count 3.56 M/mm3 (3.65-5.03); Red Cell Distribution Width 12.2 % (13.2-15.2); White Blood Count 18.2 K/mm3 (4.5-11.0)
[2016-08-26 07:43] LABS: Anion Gap 19 mmol/L; Blood Urea Nitrogen 6 mg/dL (9-20); Calcium 7.8 mg/dL (8.4-10.2); Carbon Dioxide 26 mmol/L (22-30); Chloride 99.2 mmol/L (98-107); Glucose 234 mg/dL (75-100); Potassium 3.8 mmol/L (3.6-5.0); Sodium 140 mmol/L (137-145)
--- NOTE | 2016-08-26 08:09 | Progress Note ---
Assessment and Plan - Patient Problems (1) Gluteal abscess Current Visit: Yes Status: Acute Plan to address problem: Continue IV antibiotics. Wound cultures show MRSA infection. Continue vancomycin. Patient scheduled to have debridement per surgery today (2) Type 2 diabetes mellitus Current Visit: Yes Status: Acute Qualifiers: Diabetes mellitus complication status: D Diabetes mellitus complication detail: D Diabetic retinopathy severity: D Proliferative retinopathy type: P Diabetes mellitus macular edema: D Diabetes mellitus termite helper insulin use : D Laterality: L Chronic kidney disease stage: C Plan to address problem: Continue Accu-Chek, sliding scale insulin, ADA diet History Interval history: Patient complaining of pain over the buttocks with copious drainage Hospitalist Physical - Constitutional Vitals: Temp Pulse Resp BP Pulse Ox 99.1 F 88 18 136/76 98 08/26/16 02:50 08/25/16 23:00 08/26/16 03:09 08/25/16 23:00 08/25/16 23:00 General appearance: Present: mild distress - EENT Eyes: Present: PERRL, EOM intact ENT: hearing intact, clear oral mucosa - Neck Neck: Present: supple, normal ROM - Respiratory Respiratory effort: normal Respiratory: bilateral: CTA - Cardiovascular Rhythm: regular Heart Sounds: Present: S1 & S2 - Extremities Extremities: no ischemia, No edema Extremity abnormal: other (large ulcerative lesion above the buttocks with serosanguineous drainage) - Abdominal General gastrointestinal: soft, non-tender, non-distended, normal bowel sounds - Psychiatric Psychiatric: appropriate mood/affect, intact judgment & insight - Neurologic Neurologic: CNII-XII intact, moves all extremities Results - Labs CBC & Chem 7: 08/26/16 06:19 08/26/16 06:19 Labs: Laboratory Last Values WBC 18.2 K/mm3 (4.5-11.0) H 08/26/16 06:19 RBC 3.56 M/mm3 (3.65-5.03) L 08/26/16 06:19 Hgb 10.2 gm/dl (11.8-15.2) L 08/26/16 06:19 Hct 31.0 % (35.5-45.6) L 08/26/16 06:19 MCV 87 fl (84-94) 08/26/16 06:19 MCH 29 pg (28-32) 08/26/16 06:19 MCHC 33 % (32-34) 08/26/16 06:19 RDW 12.2 % (13.2-15.2) L 08/26/16 06:19 Plt Count 291 K/mm3 (140-440) 08/26/16 06:19 Add Manual Diff Complete 08/25/16 07:47 Total Counted 100 08/25/16 07:47 Seg Neuts % (Manual) 75.0 % (40.0-70.0) H 08/25/16 07:47 Band Neutrophils % 0 % 08/25/16 07:47 Lymphocytes % (Manual) 16.0 % (13.4-35.0) 08/25/16 07:47 Reactive Lymphs % (Man) 0 % 08/25/16 07:47 Monocytes % (Manual) 9.0 % (0.0-7.3) H 08/25/16 07:47 Eosinophils % (Manual) 0 % (0.0-4.3) 08/25/16 07:47 Basophils % (Manual) 0 % (0.0-1.8) 08/25/16 07:47 Metamyelocytes % 0 % 08/25/16 07:47 Myelocytes % 0 % 08/25/16 07:47 Promyelocytes % 0 % 08/25/16 07:47 Blast Cells % 0 % 08/25/16 07:47 Nucleated RBC % Not Reportable 08/25/16 07:47 Seg Neutrophils # Man 18.6 K/mm3 (1.8-7.7) H 08/25/16 07:47 Band Neutrophils # 0.0 K/mm3 08/25/16 07:47 Lymphocytes # (Manual) 4.0 K/mm3 (1.2-5.4) 08/25/16 07:47 Abs React Lymphs (Man) 0.0 K/mm3 08/25/16 07:47 Monocytes # (Manual) 2.2 K/mm3 (0.0-0.8) H 08/25/16 07:47 Eosinophils # (Manual) 0.0 K/mm3 (0.0-0.4) 08/25/16 07:47 Basophils # (Manual) 0.0 K/mm3 (0.0-0.1) 08/25/16 07:47 Metamyelocytes # 0.0 K/mm3 08/25/16 07:47 Myelocytes # 0.0 K/mm3 08/25/16 07:47 Promyelocytes # 0.0 K/mm3 08/25/16 07:47 Blast Cells # 0.0 K/mm3 08/25/16 07:47 WBC Morphology Not Reportable 08/25/16 07:47 Hypersegmented Neuts Not Reportable 08/25/16 07:47 Hyposegmented Neuts Not Reportable 08/25/16 07:47 Hypogranular Neuts Not Reportable 08/25/16 07:47 Smudge Cells Not Reportable 08/25/16 07:47 Toxic Granulation Not Reportable 08/25/16 07:47 Toxic Vacuolation Not Reportable 08/25/16 07:47 Dohle Bodies Not Reportable 08/25/16 07:47 Pelger-Huet Anomaly Not Reportable 08/25/16 07:47 Greyson Rods Not Reportable 08/25/16 07:47 Platelet Estimate Consistent w auto 08/25/16 07:47 Clumped Platelets Not Reportable 08/25/16 07:47 Plt Clumps, EDTA Not Reportable 08/25/16 07:47 Large Platelets Not Reportable 08/25/16 07:47 Giant Platelets Not Reportable 08/25/16 07:47 Platelet Satelliting Not Reportable 08/25/16 07:47 Plt Morphology Comment Not Reportable 08/25/16 07:47 RBC Morphology Not Reportable 08/25/16 07:47 Dimorphic RBCs Not Reportable 08/25/16 07:47 Polychromasia Not Reportable 08/25/16 07:47 Hypochromasia Not Reportable 08/25/16 07:47 Poikilocytosis Not Reportable 08/25/16 07:47 Anisocytosis 1+ 08/25/16 07:47 Microcytosis Not Reportable 08/25/16 07:47 Macrocytosis Not Reportable 08/25/16 07:47 Spherocytes Not Reportable 08/25/16 07:47 Pappenheimer Bodies Not Reportable 08/25/16 07:47 Sickle Cells Not Reportable 08/25/16 07:47 Target Cells Not Reportable 08/25/16 07:47 Tear Drop Cells Not Reportable 08/25/16 07:47 Ovalocytes Not Reportable 08/25/16 07:47 Stomatocytes 1+ 08/23/16 20:28 Helmet Cells Not Reportable 08/25/16 07:47 Mosqueda-Lind Bodies Not Reportable 08/25/16 07:47 [place] Rings Not Reportable 08/25/16 07:47 [place] Cells Not Reportable 08/25/16 07:47 Bite Cells Not Reportable 08/25/16 07:47 Crenated Cell Not Reportable 08/25/16 07:47 Elliptocytes Not Reportable 08/25/16 07:47 Acanthocytes (Spur) Not Reportable 08/25/16 07:47 Rouleaux Not Reportable 08/25/16 07:47 Hemoglobin C Crystals Not Reportable 08/25/16 07:47 Schistocytes Not Reportable 08/25/16 07:47 Malaria parasites Not Reportable 08/25/16 07:47 Elvis Bodies Not Reportable 08/25/16 07:47 Hem Pathologist Commnt No 08/25/16 07:47 PT 16.5 Sec. (12.2-14.9) H 08/24/16 11:07 INR 1.34 (0.87-1.13) H 08/24/16 11:07 VBG pH 7.347 (7.320-7.420) 08/24/16 04:22 Sodium 140 mmol/L (137-145) 08/26/16 06:19 Potassium 3.8 mmol/L (3.6-5.0) 08/26/16 06:19 Chloride 99.2 mmol/L (98-107) 08/26/16 06:19 Carbon Dioxide 26 mmol/L (22-30) 08/26/16 06:19 Anion Gap 19 mmol/L 08/26/16 06:19 BUN 6 mg/dL (9-20) L 08/26/16 06:19 Creatinine 0.5 mg/dL (0.8-1.5) L 08/26/16 06:19 Estimated GFR > 60 ml/min 08/26/16 06:19 BUN/Creatinine Ratio 12.00 % 08/26/16 06:19 Glucose 234 mg/dL (75-100) H 08/26/16 06:19 POC Glucose 251 (70-105) H 08/26/16 06:06 Hemoglobin A1c 12.8 % (4-6) H 08/25/16 07:47 Lactic Acid 1.3 mmol/L (0.7-2.0) 08/24/16 11:07 Calcium 7.8 mg/dL (8.4-10.2) L 08/26/16 06:19 Urine Color Yellow (Yellow) 08/23/16 20:05 Urine Turbidity Clear (Clear) 08/23/16 20:05 Urine pH 5.0 (5.0-7.0) 08/23/16 20:05 Ur Specific [place] 1.037 (1.003-1.030) H 08/23/16 20:05 Urine Protein <15 mg/dl mg/dL (Negative) 08/23/16 20:05 Urine Glucose (UA) >=500 mg/dL (Negative) 08/23/16 20:05 Urine Ketones 20 mg/dL (Negative) 08/23/16 20:05 Urine Blood Neg (Negative) 08/23/16 20:05 Urine Nitrite Neg (Negative) 08/23/16 20:05 Urine Bilirubin Neg (Negative) 08/23/16 20:05 Urine Urobilinogen < 2.0 mg/dL (<2.0) 08/23/16 20:05 Ur Leukocyte Esterase Neg (Negative) 08/23/16 20:05 Urine WBC (Auto) < 1.0 /HPF (0.0-6.0) 08/23/16 20:05 Urine RBC (Auto) 2.0 /HPF (0.0-6.0) 08/23/16 20:05
[2016-08-26] MEDS: NOVOLOG SUB-Q SCH ×4 (08:41→23:16)
[2016-08-26] MEDS ORDERED: DIPRIVAN 10 MG/ML IV ONE (11:13)
[2016-08-26] MEDS ORDERED: SUBLIMAZE ONE (11:13)
--- NOTE | 2016-08-26 11:13 | Anesthesia Consultation ---
Anesthesia Consult and Med Hx Date of service: 08/26/16 - Airway Anesthetic Teeth Evaluation: Poor (misalignment) ROM Head & Neck: Adequate Mental/Hyoid Distance: Adequate Mallampati Class: Class II Intubation Access Assessment: Probably Good - Pulmonary Exam CTA: Yes - Cardiac Exam Cardiac Exam: RRR - Pre-Operative Health Status ASA Pre-Surgery Classification: ASA3 Proposed Anesthetic Plan: General - Pulmonary Hx Smoking: No Hx Pneumonia: No - Cardiovascular System Hx Hypertension: No - Central Nervous System Hx Neuromuscular Disorder: Yes (diabetic neuropathy, chronic pain ) Hx Psychiatric Problems: No - Gastrointestinal Hx Gastroesophageal Reflux Disease: Yes - Endocrine Hx Insulin Dependent Diabetes: Yes - Hematic Hx Anemia: Yes Hx Sickle Cell Disease: No - Other Systems Hx Alcohol Use: No Hx Substance Use: No Hx Cancer: No Hx Obesity: Yes - Additional Comments Anesthesia Medical History Comments: Patient states he ate 2100 08/25/16. Aspiration risks discussed at length with patient and understands risks.
--- NOTE | 2016-08-26 11:14 | Anesthesia Day of Surgery ---
Anesthesia Day of Surgery - Day of Surgery Patient Examined: Yes Patient H&P Reviewed: Yes Patient is NPO: Yes
[2016-08-26] MEDS ORDERED: QUELICIN ONE (11:23)
[2016-08-26] MEDS ORDERED: ZEMURON IV ONE (11:23)
[2016-08-26] MEDS ORDERED: REGLAN PO NR (12:45)
[2016-08-26] MEDS: NACL 0.9% 1000 ML 1,000 ML IV SCH (12:45)
[2016-08-26] MEDS ORDERED: TORADOL IV PRN (12:45)
[2016-08-26] MEDS ORDERED: ZOFRAN IV PRN (12:45)
[2016-08-26] MEDS ORDERED: PEPCID PO NR (12:45)
[2016-08-26] MEDS ORDERED: DILAUDID IV PRN (12:45)
[2016-08-26] MEDS ORDERED: VERSED IV NR (12:46)
[2016-08-26] MEDS ORDERED: DILAUDID ONE (13:45)
[2016-08-26] MEDS ORDERED: XYLOCAINE MPF 2% ONE (13:53)
[2016-08-26] MEDS ORDERED: NACL 0.9% IR ONE (13:53)
[2016-08-26] MEDS ORDERED: HYDROGEN PEROXIDE IRRIGATION ONE (13:59)
[2016-08-26] MEDS ORDERED: ZOFRAN ONE (14:00)
--- NOTE | 2016-08-26 14:07 | Post Operative Note ---
Pre-op diagnosis: cellulitis /abcess left upper buttock Post-op diagnosis: same Findings: C/W abcess, no lead or stimulator in wound Procedure: I and D of left buttock abcess Anesthesia: GETA Surgeon: LOC SÁNCHEZ Estimated blood loss: none Pathology: none Condition: stable Disposition: floor
--- NOTE | 2016-08-26 14:40 | Post Anesthesia Evaluation ---
- Post Anesthesia Evaluation Patient Participated: Yes Airway Patent: Yes Stable Respiratory Function: Yes Nausea/Vomiting: No Temp > 96.8F: Yes Pain Manageable: Yes Adequeate Hydration: Yes Anesthesia Complications: No Block Receding Appropriately: Not Applicable Patient on Ventilator: No
--- NOTE | 2016-08-26 18:24 | Operative Report ---
PREOPERATIVE DIAGNOSIS: Cellulitis with abscess of the left upper buttock. POSTOPERATIVE DIAGNOSIS: Cellulitis with abscess of the left upper buttock. OPERATIVE FINDINGS: Compatible with an abscess with no evidence of stimulator or lead seen or palpated in the wound. PROCEDURE: Incision and drainage of a left buttock abscess. ANESTHESIA: General. SURGEON: Stan Vazquez MD BLOOD LOSS: Essentially zero. PATHOLOGY: No pathology. SPECIMEN: No specimen. DISPOSITION: To the floor. DESCRIPTION OF PROCEDURE: After informed consent, the patient was already on IV vancomycin and Zosyn. He was induced under general anesthesia and then positioned in the right lateral decubitus position on a beanbag with a log roll to protect the axillary contents. He had compression stockings in place. He was sterilely prepped and draped in a standard fashion and then I used a 15 scalpel and there was a draining sinus situated over the area of the abscess. This was opened superolaterally and then hemostasis was established with the cautery for the subcutaneous bleeders. I used a curved Kelley and gently probed into the area releasing a fair amount of pus. This was washed out with dilute hydrogen peroxide and normal saline until clear and then packed with iodoform impregnated gauze. There was excellent hemostasis. Blood loss was only minimal. The patient tolerated the procedure well. The sponge and needle count was correct x2 at the completion of the procedure. JOB# [id number] EMMANUEL/ADAM TORRES
[2016-08-26] MEDS: TYLENOL PO PRN (21:28)
[2016-08-26] MEDS: LEVEMIR SUB-Q SCH (23:15)
[2016-08-27] MEDS ORDERED: AMBIEN PO ONE (00:06)
[2016-08-27] MEDS: DILAUDID IV PRN ×2 (01:57→06:33)
[2016-08-27] MEDS: ZOSYN/NS 4.5GM/100ML 4.5 GM/100 ML VIAL IV SCH ×4 (01:58→18:22)
--- NOTE | 2016-08-27 07:46 | Event Note ---
Date: 08/27/16 POD 1 s/p I and D of left buttock abcess, packing removed, MRSA in cultures, I need Ortho evaluation as to whether Nerve stimulator is infected and has to be removed, at this point there is NO ROLE for high dose IV narcotics! patient can NOT take IV dilaudid at home, he allready has a complicated pain hx and IV dilaudid is inappropriate at this point, PO pain meds are appropriate. IV dilaudid will only make his pain management more difficult and I have spoken with patient about all of this.
[2016-08-27 07:47] LABS: Basophils % (Auto) 0.2 % (0.0-1.8); Hematocrit 31.8 % (35.5-45.6); Hemoglobin 10.5 gm/dl (11.8-15.2); Mean Corpuscular HGB Conc 33 % (32-34); Mean Corpuscular Hemoglobin 29 pg (28-32); Mean Corpuscular Volume 88 fl (84-94); Platelet Count 346 K/mm3 (140-440); Red Blood Count 3.62 M/mm3 (3.65-5.03); Red Cell Distribution Width 12.1 % (13.2-15.2); White Blood Count 13.7 K/mm3 (4.5-11.0)
[2016-08-27 08:06] LABS: Alanine Aminotransferase 57 units/L (7-56); Albumin 2.7 g/dL (3.9-5); Albumin/Globulin Ratio 0.7 %; Alkaline Phosphatase 148 units/L (35-129); Anion Gap 16 mmol/L; Bilirubin,Total 0.7 mg/dL (0.1-1.2); Blood Urea Nitrogen 3 mg/dL (9-20); Calcium 8.4 mg/dL (8.4-10.2); Carbon Dioxide 28 mmol/L (22-30); Chloride 101.3 mmol/L (98-107); Glucose 236 mg/dL (75-100); Sodium 141 mmol/L (137-145); Total Protein 6.4 g/dL (6.3-8.2)
[2016-08-27] MEDS: VANCOMYCIN VIAL 1,250 MG in NACL 0.9% 250ML 250 ML IV SCH ×2 (09:16→14:00)
[2016-08-27] MEDS: NOVOLOG SUB-Q SCH ×3 (09:19→18:20)
[2016-08-27] MEDS: PERCOCET 5/325 PO PRN ×3 (10:50→20:55)
--- NOTE | 2016-08-27 15:14 | Event Note ---
Date: 08/27/16 This is a 41-year-old man, had chronic pain and had a spinal cord stimulator placed in [place]. He is admitted because of a possible spider bite and had undergone debridement of the buttocks left side. Exam shows her left buttocks area shows an open wound approximately 3 cm which is open and packed. Is my belief that if the cord stimulator is not obviously exposed in the wound this may be preserved. Will discuss with yo . Is my opinion that he continue with local wound care, allow her wound to heal and if the stimulator need to be exchanged , then he may return to his pain management physician for the same. I do not perform implantation of spinal cord stimulator.
[2016-08-27] MEDS: VANCOMYCIN VIAL 2,000 MG in NACL 0.9% 500 ML 500 ML IV SCH (16:02)
[2016-08-27] MEDS: NACL 0.9% 1000 ML 1,000 ML IV SCH (18:48)
--- NOTE | 2016-08-27 23:39 | Progress Note ---
Assessment and Plan 1. Gluteal abscess : Status post incision and drainage. 2. Diabetes mellitus: Uncontrolled, continue with systemic vasculitis diet, and sliding-scale insulin. 3. Chronic pain syndrome patient with the stimulator the spinal cord. review of the that these 2 L infected. 4. Diabetes neuropathy: Continue gabapentine Check labs. Subjective Date of service: 08/27/16 Objective - Constitutional Vitals: Vital Signs - 12hr 08/27/16 08/27/16 08/27/16 17:30 20:55 23:12 Temperature 99.6 F 98.5 F Pulse Rate [ 80 From Monitor] Pulse Rate [ 77 Left Radial] Respiratory 16 20 20 Rate Blood Pressure 160/86 [Left Arm] Blood Pressure 174/95 [Right Arm] O2 Sat by Pulse 98 98 Oximetry General appearance: Present: no acute distress, well-nourished - EENT Eyes: PERRL, EOM intact ENT: hearing intact, clear oral mucosa Ears: bilateral: normal - Neck Neck: supple, normal ROM - Respiratory Respiratory effort: normal Respiratory: bilateral: CTA - Breasts Breasts: normal - Cardiovascular Rhythm: regular Heart Sounds: Present: S1 & S2. Absent: gallop, rub Extremities: pulses intact, No edema, normal color, Full ROM - Gastrointestinal General gastrointestinal: Present: soft, non-tender, non-distended, normal bowel sounds - Integumentary Integumentary: warm, dry - Musculoskeletal Musculoskeletal: strength equal bilaterally, other (right gluteal abscess. Spinal stimulator for chronic pain in place) - Neurologic Neurologic: moves all extremities - Psychiatric Psychiatric: memory intact, appropriate mood/affect, intact judgment & insight - Labs CBC & Chem 7: 08/27/16 07:04 08/27/16 07:04 Labs: Abnormal lab results 08/27/16 08/27/16 08/27/16 Range/Units 06:34 07:04 07:04 WBC 13.7 H (4.5-11.0) K/mm3 RBC 3.62 L (3.65-5.03) M/mm3 Hgb 10.5 L (11.8-15.2) gm/dl Hct 31.8 L (35.5-45.6) % RDW 12.1 L (13.2-15.2) % [place] % (Auto) 14.6 H (0.0-7.3) % [place] # 2.0 H (0.0-0.8) K/mm3 Seg Neutrophils # 8.8 H (1.8-7.7) K/mm3 BUN 3 L (9-20) mg/dL Creatinine 0.5 L (0.8-1.5) mg/dL Glucose 236 H (75-100) mg/dL POC Glucose 223 H (70-105) ALT 57 H (7-56) units/L Alkaline Phosphatase 148 H (35-129) units/L Albumin 2.7 L (3.9-5) g/dL 08/27/16 08/27/16 Range/Units 11:27 17:27 WBC (4.5-11.0) K/mm3 RBC (3.65-5.03) M/mm3 Hgb (11.8-15.2) gm/dl Hct (35.5-45.6) % RDW (13.2-15.2) % [place] % (Auto) (0.0-7.3) % [place] # (0.0-0.8) K/mm3 Seg Neutrophils # (1.8-7.7) K/mm3 BUN (9-20) mg/dL Creatinine (0.8-1.5) mg/dL Glucose (75-100) mg/dL POC Glucose 244 H 278 H (70-105) ALT (7-56) units/L Alkaline Phosphatase (35-129) units/L Albumin (3.9-5) g/dL
[2016-08-28] MEDS: ZOSYN/NS 4.5GM/100ML 4.5 GM/100 ML VIAL IV SCH ×4 (01:02→18:15)
[2016-08-28] MEDS: VANCOMYCIN VIAL 2,000 MG in NACL 0.9% 500 ML 500 ML IV SCH ×3 (01:03→18:15)
[2016-08-28] MEDS: PERCOCET 5/325 PO PRN ×5 (01:05→22:57)
[2016-08-28] MEDS: NOVOLOG SUB-Q SCH ×4 (01:07→18:16)
[2016-08-28] MEDS: LEVEMIR SUB-Q SCH (01:07)
[2016-08-28 07:42] LABS: Alanine Aminotransferase 47 units/L (7-56); Albumin 2.6 g/dL (3.9-5); Albumin/Globulin Ratio 0.7 %; Alkaline Phosphatase 124 units/L (35-129); Anion Gap 15 mmol/L; BUN/Creatinine Ratio 6.66; Bilirubin,Total 0.5 mg/dL (0.1-1.2); Blood Urea Nitrogen 4 mg/dL (9-20); Calcium 8.2 mg/dL (8.4-10.2); Carbon Dioxide 29 mmol/L (22-30); Chloride 100.3 mmol/L (98-107); Glucose 225 mg/dL (75-100); Potassium 3.6 mmol/L (3.6-5.0); Sodium 141 mmol/L (137-145); Total Protein 6.3 g/dL (6.3-8.2)
[2016-08-28 07:46] LABS: Basophils % (Auto) 0.3 % (0.0-1.8); Eosinophils % (Auto) 1.5 % (0.0-4.3); Mean Corpuscular HGB Conc 33 % (32-34); Mean Corpuscular Hemoglobin 29 pg (28-32); Mean Corpuscular Volume 88 fl (84-94); Platelet Count 353 K/mm3 (140-440); Red Blood Count 3.41 M/mm3 (3.65-5.03); Red Cell Distribution Width 12.2 % (13.2-15.2)
[2016-08-28] MEDS: NACL 0.9% 1000 ML 1,000 ML IV SCH (08:04)
--- NOTE | 2016-08-28 16:08 | Progress Note ---
Assessment and Plan 1. Gluteal abscess : Status post incision and drainage. 2. Diabetes mellitus: Uncontrolled, continue with systemic vasculitis diet, and sliding-scale insulin. 3. Chronic pain syndrome patient with the stimulator the spinal cord. review of the that these 2 L infected. 4. Diabetes neuropathy: Continue gabapentine 5. D/c planning for tomorrow with home health nurse for dressing. Discussed at length with the patient and his significant order and both agree to this management plan. Subjective Date of service: 08/28/16 Principal diagnosis: gluteal abcess Interval history: Less pain Objective - Constitutional Vitals: Vital Signs - 12hr 08/28/16 08/28/16 08:00 08:02 Temperature 98.2 F Pulse Rate [ 72 From Monitor] Respiratory 16 20 Rate Blood Pressure 159/97 [Left Arm] O2 Sat by Pulse 98 Oximetry General appearance: Present: no acute distress, well-nourished - EENT Eyes: PERRL, EOM intact ENT: hearing intact, clear oral mucosa Ears: bilateral: normal - Neck Neck: supple, normal ROM - Respiratory Respiratory effort: normal Respiratory: bilateral: CTA - Cardiovascular Rhythm: regular Heart Sounds: Present: S1 & S2. Absent: gallop, rub Extremities: pulses intact, No edema, normal color, Full ROM - Gastrointestinal General gastrointestinal: Present: soft, non-tender, non-distended, normal bowel sounds - Integumentary Integumentary: warm, dry Body Four View: 1 - Gluteal abcess s/p I&D with soaked dresssing - Musculoskeletal Musculoskeletal: 1, strength equal bilaterally - Neurologic Neurologic: moves all extremities - Psychiatric Psychiatric: memory intact, appropriate mood/affect, intact judgment & insight - Labs CBC & Chem 7: 08/28/16 07:05 08/28/16 07:05 Labs: Abnormal lab results 08/27/16 08/27/16 08/28/16 Range/Units 17:27 23:33 06:36 RBC (3.65-5.03) M/mm3 Hgb (11.8-15.2) gm/dl Hct (35.5-45.6) % RDW (13.2-15.2) % [place] % (Auto) (0.0-7.3) % [place] # (0.0-0.8) K/mm3 BUN (9-20) mg/dL Creatinine (0.8-1.5) mg/dL Glucose (75-100) mg/dL POC Glucose 278 H 240 H 218 H (70-105) Calcium (8.4-10.2) mg/dL Albumin (3.9-5) g/dL 08/28/16 08/28/16 08/28/16 Range/Units 07:05 07:05 09:48 RBC 3.41 L (3.65-5.03) M/mm3 Hgb 10.0 L (11.8-15.2) gm/dl Hct 30.0 L (35.5-45.6) % RDW 12.2 L (13.2-15.2) % [place] % (Auto) 9.9 H (0.0-7.3) % [place] # 1.1 H (0.0-0.8) K/mm3 BUN 4 L (9-20) mg/dL Creatinine 0.6 L (0.8-1.5) mg/dL Glucose 225 H (75-100) mg/dL POC Glucose 281 H (70-105) Calcium 8.2 L (8.4-10.2) mg/dL Albumin 2.6 L (3.9-5) g/dL 08/28/16 Range/Units 12:26 RBC (3.65-5.03) M/mm3 Hgb (11.8-15.2) gm/dl Hct (35.5-45.6) % RDW (13.2-15.2) % [place] % (Auto) (0.0-7.3) % [place] # (0.0-0.8) K/mm3 BUN (9-20) mg/dL Creatinine (0.8-1.5) mg/dL Glucose (75-100) mg/dL POC Glucose 265 H (70-105) Calcium (8.4-10.2) mg/dL Albumin (3.9-5) g/dL
[2016-08-29] MEDS: ZOSYN/NS 4.5GM/100ML 4.5 GM/100 ML VIAL IV SCH ×4 (02:05→21:28)
[2016-08-29] MEDS: VANCOMYCIN VIAL 2,000 MG in NACL 0.9% 500 ML 500 ML IV SCH ×3 (02:09→17:47)
[2016-08-29] MEDS: NOVOLOG SUB-Q SCH ×5 (02:11→22:40)
[2016-08-29] MEDS: LEVEMIR SUB-Q SCH ×2 (02:12→22:39)
[2016-08-29] MEDS: ZOFRAN IV PRN ×3 (02:25→22:54)
[2016-08-29] MEDS: PERCOCET 5/325 PO PRN ×4 (04:33→19:38)
[2016-08-29] MEDS: PROTONIX IV SCH (12:31)
[2016-08-29] MEDS: NACL 0.9% 1000 ML 1,000 ML IV SCH (12:32)
--- NOTE | 2016-08-29 15:43 | Progress Note ---
Assessment and Plan 1. Gluteal abscess : Status post incision and drainage. 2. Diabetes mellitus: Uncontrolled, continue with systemic vasculitis diet, and sliding-scale insulin. 3. Chronic pain syndrome patient with the stimulator the spinal cord. review of the that these 2 L infected. 4. Diabetes neuropathy: Continue gabapentine 5. D/c planning for tomorrow as case ramírez need to [facility] home [place] nurse lfor local wound care tomorrow, Tuesday. Discussed management plan with patient Subjective Date of service: 08/29/16 Principal diagnosis: gluteal abcess Interval history: More lower back pain today Objective - Constitutional Vitals: Vital Signs - 12hr 08/29/16 08/29/16 04:33 07:30 Temperature 98.3 F Pulse Rate [ 78 From Monitor] Respiratory 20 18 Rate Blood Pressure 157/79 [Left Arm] O2 Sat by Pulse 96 Oximetry General appearance: Present: no acute distress - EENT Eyes: PERRL ENT: hearing intact Ears: bilateral: normal - Neck Neck: supple, normal ROM - Respiratory Respiratory effort: normal Respiratory: bilateral: CTA - Breasts Breasts: normal - Cardiovascular Rhythm: regular Heart Sounds: Present: S1 & S2. Absent: gallop, rub Extremities: pulses intact, No edema, normal color, Full ROM - Gastrointestinal General gastrointestinal: Present: soft, non-tender, non-distended, normal bowel sounds - Genitourinary Male genitourinary: normal - Integumentary Integumentary: clear, warm, dry - Musculoskeletal Musculoskeletal: 1, strength equal bilaterally - Neurologic Neurologic: moves all extremities - Psychiatric Psychiatric: memory intact, appropriate mood/affect, intact judgment & insight - Labs CBC & Chem 7: 08/28/16 07:05 08/28/16 07:05 Labs: Abnormal lab results 08/28/16 08/28/16 08/29/16 Range/Units 17:40 21:23 06:31 POC Glucose 208 H 221 H 174 H (70-105) 08/29/16 Range/Units 12:15 POC Glucose 255 H (70-105)
[2016-08-29 16:18] LABS: Basophils % (Auto) 0.3 % (0.0-1.8); Eosinophils % (Auto) 1.3 % (0.0-4.3); Hematocrit 33.2 % (35.5-45.6); Hemoglobin 10.9 gm/dl (11.8-15.2); Mean Corpuscular HGB Conc 33 % (32-34); Mean Corpuscular Hemoglobin 29 pg (28-32); Mean Corpuscular Volume 88 fl (84-94); Platelet Count 471 K/mm3 (140-440); Red Blood Count 3.77 M/mm3 (3.65-5.03); Red Cell Distribution Width 12.4 % (13.2-15.2); White Blood Count 12.4 K/mm3 (4.5-11.0)
[2016-08-29 16:40] LABS: Alanine Aminotransferase 47 units/L (7-56); Albumin 3.2 g/dL (3.9-5); Albumin/Globulin Ratio 0.8 %; Alkaline Phosphatase 125 units/L (35-129); Anion Gap 19 mmol/L; Bilirubin,Total 0.6 mg/dL (0.1-1.2); Blood Urea Nitrogen 6 mg/dL (9-20); Calcium 8.7 mg/dL (8.4-10.2); Carbon Dioxide 28 mmol/L (22-30); Glucose 241 mg/dL (75-100); Potassium 4.3 mmol/L (3.6-5.0); Sodium 145 mmol/L (137-145); Total Protein 7.3 g/dL (6.3-8.2)
[2016-08-30] MEDS: VANCOMYCIN VIAL 2,000 MG in NACL 0.9% 500 ML 500 ML IV SCH ×2 (00:15→09:14)
[2016-08-30] MEDS: ZOSYN/NS 4.5GM/100ML 4.5 GM/100 ML VIAL IV SCH ×3 (00:17→12:21)
[2016-08-30] MEDS: PERCOCET 5/325 PO PRN ×3 (01:53→13:07)
--- NOTE | 2016-08-30 07:35 | Event Note ---
Date: 08/30/16 VSS AF wound much better, being packed by nurses, heavy growth MRSA sens to oral agents, agree with discharge on oral antibiotics, home VNA OK with me and I can follow patient as outpatient, needs to be compliant with diet and blood sugar control, OK to shower with soap and water in wound! I will sign off for now and follow patient in one week in my office as outpatient. WBC trending down , WBC 12 K yesterday.
[2016-08-30 07:51] LABS: Basophils % (Auto) 0.5 % (0.0-1.8); Eosinophils % (Auto) 1.5 % (0.0-4.3); Hematocrit 31.3 % (35.5-45.6); Hemoglobin 10.3 gm/dl (11.8-15.2); Mean Corpuscular HGB Conc 33 % (32-34); Mean Corpuscular Hemoglobin 29 pg (28-32); Mean Corpuscular Volume 87 fl (84-94); Platelet Count 452 K/mm3 (140-440); Red Blood Count 3.59 M/mm3 (3.65-5.03); Red Cell Distribution Width 12.5 % (13.2-15.2); White Blood Count 12.3 K/mm3 (4.5-11.0)
--- NOTE | 2016-08-30 08:03 | Discharge Summary ---
Providers - Providers Date of Admission: 08/24/16 04:17 Date of discharge: 08/30/16 Attending physician: GERA MILLER 08/24/16 07:41 Consult to Dietitian/Nutrition [CONS] Routine Physician Instructions: Reason For Exam: Reason for Consult: Nutrition Recommendations Reason for Consult: Diet education 08/24/16 09:29 Consult to Physician [CONS] Routine Consulting Provider: LOC SÁNCHEZ Reason For Exam: GLUTEAL ABSCESS Place consult to:: office Notified:: yes Phone number called:: [phone] Was contact made?: Yes If yes, spoke with:: Dory Cui called:: 13:59 08/24/16 09:30 Consult to Wound/ET Nurse [CONS] Routine Reason For Exam: wound eval 08/25/16 17:15 PICC Line Placement [Consult to PICC Line RN] [CONS] Routine Reason For Exam: for antibiotics Type Line:: PICC 08/27/16 07:48 Consult to Physician [CONS] Routine Consulting Provider: BETHANY MURRIETA Reason For Exam: does patient have infected nerve stimulator? Place consult to:: DR. MURRIETA Notified:: OFFICE Phone number called:: [phone] Was contact made?: Yes If yes, spoke with:: MILVIA Time called:: 10:04 Comment:: MAGNUS NOTIFIED Primary care physician: BUGGYMAN Hospitalization Condition: Serious Hospital course: Patient is a 41-year-old male presented to the ER with complaint of buttocks pain. He s has a known history of diabetes mellitus, diabetic neuropathy, chronic pain syndrome, also a crush injury to the right lower extremity for which he has a nerve stimulator in place. He reports that the pain started about 3 days ago he tried to squeeze the gluteal area and he began created significant pain. He is in so much pain is unable to provide me much information. He denies any fever or chills nausea vomiting diarrhea. He is what his blood sugar control isthat he shuttles between [place] and [place]. He described the pain as 9 out of 10 in intensity with no radiation. Patient was seen by the diabetes and surgery. Patient had wound debridement and wound was packed with gauze. The wound had a heavy growth of MRSA which was sensitive to oral antibiotics. Patient was seen by orthopedics and by Dr. Brito. which felt the patient could be discharged home in stable condition and will follow with Dr. Brito. She is currently clinically stable and afebrile. Disposition: DISCHARGED TO HOME OR SELFCARE - Discharge Diagnoses (1) Gluteal abscess Status: Acute (2) Type 2 diabetes mellitus Status: Acute Qualifiers: Diabetes mellitus complication status: D Diabetes mellitus complication detail: D Diabetic retinopathy severity: D Proliferative retinopathy type: P Diabetes mellitus macular edema: D Diabetes mellitus termite control representative insulin use : D Laterality: L Chronic kidney disease stage: C Core Measure Documentation - Palliative Care Palliative Care/ Comfort Measures: Not Applicable - Core Measures Any of the following diagnoses?: none Exam - Constitutional Vitals: Temp Pulse Resp BP Pulse Ox 99.3 F 80 18 144/80 98 08/30/16 00:51 08/30/16 00:51 08/30/16 02:00 08/30/16 00:51 08/30/16 00:51 General appearance: Present: no acute distress - EENT Eyes: Present: PERRL, EOM intact ENT: hearing intact, clear oral mucosa - Neck Neck: Present: supple, normal ROM - Respiratory Respiratory effort: normal Respiratory: bilateral: CTA - Cardiovascular Rhythm: regular Heart Sounds: Present: S1 & S2 - Abdominal General gastrointestinal: Present: soft, non-tender, non-distended, normal bowel sounds - Musculoskeletal Musculoskeletal: strength equal bilaterally - Psychiatric Psychiatric: appropriate mood/affect, intact judgment & insight - Neurologic Neurologic: CNII-XII intact, moves all extremities Plan Activity: advance as tolerated Weight Bearing Status: Weight Bear as Tolerated Diet: low fat, low cholesterol, low salt, diabetic Follow up with: PRIMARY CARE, [Primary Care Provider] - 3-5 Days LOC SÁNCHEZ MD [Staff Physician] - 7 Days YANET CANTRELL MD [Staff Physician] - 7 Days Prescriptions: Insulin Detemir [Levemir] 12 units SUB-Q QHS #30 units oxyCODONE /ACETAMINOPHEN [Percocet 5/325 mg] 2 tab PO Q4H PRN #30 tablet PRN Reason: Pain, Moderate (4-6) Sulfamethoxazole/Trimethoprim [Bactrim DS TAB] 1 each PO BID #20 tablet
[2016-08-30] MEDS: NOVOLOG SUB-Q SCH ×2 (08:17→12:22)
[2016-08-30] MEDS: ZOFRAN IV PRN ×2 (08:17→13:06)
[2016-08-30 08:20] LABS: Alanine Aminotransferase 43 units/L (7-56); Albumin/Globulin Ratio 0.9 %; Alkaline Phosphatase 111 units/L (35-129); Anion Gap 17 mmol/L; Bilirubin,Total 0.6 mg/dL (0.1-1.2); Blood Urea Nitrogen 6 mg/dL (9-20); Calcium 8.2 mg/dL (8.4-10.2); Carbon Dioxide 28 mmol/L (22-30); Chloride 102.3 mmol/L (98-107); Glucose 199 mg/dL (75-100); Potassium 3.9 mmol/L (3.6-5.0); Sodium 143 mmol/L (137-145); Total Protein 6.5 g/dL (6.3-8.2)
[2016-08-30] MEDS: PROTONIX IV SCH (09:30)
[2016-08-30 10:28] VITALS: BP 166/85
[2016-08-30] MEDS: NACL 0.9% 1000 ML 1,000 ML IV SCH (12:22)
== END 2016-08-30 17:53 | disposition home health service (06) | DRG 854 ==
LOC: ED 18:49 → 3A 08-24 04:17
PROVIDERS: ADMIT Hospitalist; ATTEND Internal Medicine
PROC: 0J990ZZ Drainage of Buttock Subcutaneous Tissue and Fascia, Open Approach (ICD-10-PCS; principal; 2016-08-26)
DX: A41.9 Sepsis, unspecified organism (principal); L02.31 Cutaneous abscess of buttock; L03.317 Cellulitis of buttock; E11.65 Type 2 diabetes mellitus with hyperglycemia; E11.40 Type 2 diabetes mellitus with diabetic neuropathy, unspecified; G89.4 Chronic pain syndrome; K21.9 Gastro-esophageal reflux disease without esophagitis; D64.9 Anemia, unspecified; B95.62 Methicillin resistant Staphylococcus aureus infection as the cause of diseases classified elsewhere; Z79.4 Long term (current) use of insulin
CPT/HCPCS: 36415; 74176; 80048; 80053; 80202; 81001; 82140; 82805; 82962; 83036; 85007; 85025; 85027; 85610; 87040; 87076; 87116; 87186; 93005; 93010; 96365; 96366; 96368; 96372; 96375; C9113; J0330; J1170; J1815; J1818; J2250; J2405; J2543; J2704; J3010; J3370; J7030; J7040; J7050